=== PATIENT | male | born 1970 | race Caucasian/White ===

== ENCOUNTER → 2017-11-30 10:36 | Outpatient (POV) | payer MEDICARE, SELFPAY ==
[2017-11-30 11:17] VITALS: BP 120/85; PULSE 101; RESP 18; O2SAT 97
--- NOTE | 2017-11-30 11:39 | [facility].PMCON ---
Assessment and Plan (1) Degenerative joint disease (DJD) of lumbar spine Current visit: Yes Status: Acute Qualifiers: Spinal osteoarthritis complication: with radiculopathy Qualified Code(s): M47.26 - Other spondylosis with radiculopathy, lumbar region Category: Medical Code(s): M47.816 - Spondylosis without myelopathy or radiculopathy, lumbar region (2) Lumbosacral radiculopathy due to degenerative joint disease of spine Current visit: Yes Status: Acute Category: Medical Code(s): M47.27 - Other spondylosis with radiculopathy, lumbosacral region - Assessment and plan all Dx Assessment and Plan for all problems:: This patient is not interested in injections at this time. He is scared to of needles. He does not want any surgery. He has been on Percocet in the past which is helped. He was incarcerated from 2014 until present. He has recently gotten out of residential. He was prescribed Percocet before he was incarcerated. I have told him that the only thing that I can offer his injections. Patient is going to think about this and follow-up on a as needed basis. HPI - Data of Consult Patient: new to practice Consult date: 11/30/17 Requesting Physician: Daquan Zelaya MD Primary Care Provider: Nnamdi Hammonds - Consult Narrative Reason for consult: Low back pain with radicular symptom History of present illness: Mr. Wolfe is a 46 year old male CC: Daquan Zelaya MD [facility] History I have reviewed the patient's past medical history: Yes Medical History: Denies:: Cancer, Diabetes Mellitus Type 1, Diabetes Mellitus Type 2, MRSA Other Medical History: Reports: Arthritis Other Surgeries: Yes: Hernia Repair Amputation: No Fractures: No - *Social History Smoking Status: Current every day smoker Tobacco Type: cigarettes # Packs/Day (cigarettes): 1 #Yrs smoked (if former smoker): 30 Alcohol Intake: former Occupational Status: unemployed - Psychiatric History Expresses thoughts of harming self/others: None Suicide Plan Description: No Plan *Family Hx:: Unable to obtain Review of Systems - Review of Systems Review of systems:: pertinent systems reviewed and negative unless documented below - *Musculoskeletal Reports abnormal walking, Reports back pain, Reports radiating pain into limb Meds Home Medications Medication Instructions Recorded Confirmed Type Amitriptyline HCl [Elavil 50mg 1 cap PO Q60MIN 11/30/17 11/30/17 History tablet] Objective Vital signs: Pulse Resp BP Pulse Ox 101 H 18 120/85 97 11/30/17 11:17 11/30/17 11:17 11/30/17 11:17 11/30/17 11:17 - Routine Back/Spine/Pelvis Exam Back/Spine: Present: vertebral tenderness - *Routine Neurological Exam Present: alert, oriented X3, moving all extremities, normal tone Opioid Risk Tool - Opioid Risk Tool-Male Family hx alcohol abuse: N Family hx illegal drugs: N Family hx rx drug abuse: N Personal hx alcohol abuse: N Personal hx illegal drugs: N Personal hx rx drug abuse: N Age: 45+ Hx of sexual abuse: N Mental health issues-ADD,OCD,Bipolar, etc: N Hx of depression: N Male Risk Score: 0
== END ==
PROVIDERS: PCP Family Medicine; Visit Provider Anesthesiology
DX: M47.26 Other spondylosis with radiculopathy, lumbar region (principal); M47.27 Other spondylosis with radiculopathy, lumbosacral region
CPT/HCPCS: 99202; 99212